=== PATIENT | female | born 1995 | race Caucasian/White ===

== ENCOUNTER 2017-02-04 17:28 | Emergency (ER) | payer MEDICAID ==
[~2017-02-04] VITALS: Ht 160 cm; Wt 105.7 kg
[2017-02-04 17:29] VITALS: BP 106/67; Ht 160 cm; Wt 105.7 kg
== END 2017-02-04 21:29 | disposition left against medical advice (07) ==
LOC: ED 17:28
DX: Z53.21 Procedure and treatment not carried out due to patient leaving prior to being seen by health care provider (principal)